=== PATIENT | female | born 1955 | race Caucasian/White ===

== ENCOUNTER 2016-11-19 10:40 | Emergency (ER) | payer MEDICAID ==
[~2016-11-19] VITALS: Ht 157.5 cm; Wt 72.6 kg
[2016-11-19 11:00] VITALS: BP_SYST 127
[2016-11-19 11:20] VITALS: BP_SYST 127
== END 2016-11-19 11:20 | disposition home or self-care (01) ==
LOC: SED 10:40
DX: S62.101A Fracture of unspecified carpal bone, right wrist, initial encounter for closed fracture (principal); W01.0XXA Fall on same level from slipping, tripping and stumbling without subsequent striking against object, initial encounter; Y93.89 Activity, other specified; Y92.89 Other specified places as the place of occurrence of the external cause; Y99.8 Other external cause status
CPT/HCPCS: 99282; 99283

== ENCOUNTER 2020-08-26 13:38 | Emergency (ER) | payer MEDICARE, MEDICAID ==
[~2020-08-26] VITALS: Ht 157.5 cm; Wt 68.0 kg
[2020-08-26 13:46] VITALS: BP_SYST 151
[2020-08-26] MEDS ORDERED: IBUPROFEN 600 MG TABLET PO ONE (14:30)
[2020-08-26] MEDS ORDERED: TRAM50TA2 PO (15:41)
[2020-08-26 16:20] VITALS: BP_SYST 151
== END 2020-08-26 16:22 | disposition home or self-care (01) ==
LOC: SED 13:38
DX: S20.211A Contusion of right front wall of thorax, initial encounter (principal); W11.XXXA Fall on and from ladder, initial encounter; Y93.89 Activity, other specified; Y92.89 Other specified places as the place of occurrence of the external cause; Y99.8 Other external cause status
CPT/HCPCS: 71100; 99283

== ENCOUNTER 2020-10-23 21:19 | Emergency (ER) | payer MEDICARE, MEDICAID ==
[~2020-10-23] VITALS: Ht 157.5 cm; Wt 68.0 kg
[~2020-10-23 21:19] MED LIST: TRAM50TA2 PO
[2020-10-23 22:15] VITALS: BP_SYST 144
--- NOTE | 2020-10-23 22:15 | NUR ---
Patient ambulatory to bed 4 for evaluation
--- NOTE | 2020-10-23 22:20 | NUR ---
AWAKE, ALERT. 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 SHE ATTEMPTED TO REMOVE THE SPLINTER, BUT SOME REMAINED AND IT BECAME SWOLLEN.
--- NOTE | 2020-10-23 23:07 | NUR ---
ER Dr.D' Carvajal at bedside examining patient.
[2020-10-23] MEDS ORDERED: ACETAMINOPHEN/CODEINE 300 MG-30 MG TABLET PO ONE (23:15)
[2020-10-23] MEDS ORDERED: DIPH-TET-PERTUS Vaccine 0.5 ML VIAL (ADACEL) I.M. ONE (23:15)
[2020-10-23] MEDS ORDERED: NALOXONE HCL 0.4 MG/ML AMP (NARCAN) IVP PRN (23:15)
--- NOTE | 2020-10-24 | NUR ---
DR ARRIAZA REMOVING THE SPLINTER USING ASEPTIC TECHNIQUE, OBTAINED ABOUT AN INCH OF SPLINTER WOOD.
[2020-10-24] MEDS ORDERED: CLIN150C16 PO (00:12)
[2020-10-24] MEDS ORDERED: BACITRACIN 1 GM OINT TP ONE (00:17)
[2020-10-24 00:45] VITALS: BP_SYST 144
--- NOTE | 2020-10-24 00:45 | NUR ---
Patient given written and verbal discharge instructions and verbalizes understanding. ER DR ARSALAN OROZCO discussed with patient the results and treatment provided. Patient in stable condition. ID arm band removed. Rx of CLINDAMYCIN, TRAMADOL given. Patient educated on pain management and to follow up with PMD. Pain Scale . Opportunity for questions provided and answered. Medication side effect fact sheet provided.
== END 2020-10-24 00:45 | disposition home or self-care (01) ==
LOC: SED 21:19
DX: S51.831A Puncture wound without foreign body of right forearm, initial encounter (principal); Z79.899 Other long term (current) drug therapy; W45.8XXA Other foreign body or object entering through skin, initial encounter; Y93.89 Activity, other specified; Y92.89 Other specified places as the place of occurrence of the external cause; Y99.8 Other external cause status
CPT/HCPCS: 90715; 99285; J2310